=== PATIENT | female | born 1945 | race Caucasian/White ===

== ENCOUNTER 2016-04-15 09:33 | Outpatient (CLI) | payer MEDICARE, OTHER | END 2016-04-15 09:34 | disposition home or self-care (01) | DX: Z12.31 Encounter for screening mammogram for malignant neoplasm of breast (principal); Z80.3 Family history of malignant neoplasm of breast ==

== ENCOUNTER 2016-04-15 09:36 | Outpatient (CLI) | payer MEDICARE, OTHER | END 2016-04-15 09:37 | disposition home or self-care (01) | DX: M50.221 Other cervical disc displacement at C4-C5 level (principal); M43.19 Spondylolisthesis, multiple sites in spine; M48.02 Spinal stenosis, cervical region; M47.892 Other spondylosis, cervical region; M79.602 Pain in left arm ==

== ENCOUNTER 2016-06-16 08:00 | Outpatient (CLI) | payer MEDICARE | END 2016-06-16 08:01 | DX: N76.0 Acute vaginitis (principal) ==

== ENCOUNTER 2016-07-01 07:31 | Outpatient (CLI) | payer MEDICARE | END 2016-07-01 23:59 | DX: N76.1 Subacute and chronic vaginitis (principal) ==

== ENCOUNTER 2016-07-23 07:32 | Outpatient (CLI) | payer MEDICARE | END 2016-07-23 23:59 | DX: N89.8 Other specified noninflammatory disorders of vagina (principal) ==

== ENCOUNTER 2017-05-12 13:11 | Outpatient (CLI) | payer MEDICARE ==
--- NOTE | 2017-05-13 18:04 | Mammography Report ---
DIGITAL SCREENING MAMMOGRAM: 05/12/2017 CLINICAL INDICATION: A 71-year-old with a family history of breast cancer for screening. COMPARISON: 03/2016, 08/2014, 02/2013, 12/2011, 11/2010, 12/2009, 11/2009. TECHNIQUE: Routine CC and MLO projections were obtained of the breasts. FINDINGS: The breasts again demonstrate heterogeneously dense fibroglandular parenchyma bilaterally. There is a possible increase in calcifications in the left upper outer central breast. Further evaluation with spot magnification views is recommended. No mammographically suspicious findings are appreciated in the right breast. IMPRESSION: INCOMPLETE EXAMINATION. RECOMMENDATION: Additional evaluation of the left breast as above. BIRADS category: 0, incomplete. STANDARD QUALIFYING STATEMENTS 1. This examination was reviewed with the aid of Computed-Aided Detection (CAD). 2. A negative or benign imaging report should not delay biopsy if clinically suspicious findings are present. Consider surgical consultation if warranted. More than 5% of cancers are not identified by imaging. 3. Dense breasts may obscure an underlying neoplasm. TD: 05/13/2017 18:03
== END 2017-05-12 13:12 | disposition home or self-care (01) ==
LOC: DI 13:11
PROVIDERS: ATTEND Internal Medicine
DX: Z12.31 Encounter for screening mammogram for malignant neoplasm of breast (principal); R92.8 Other abnormal and inconclusive findings on diagnostic imaging of breast; Z80.3 Family history of malignant neoplasm of breast
CPT/HCPCS: 77067

== ENCOUNTER 2017-05-12 13:12 | Outpatient (CLI) | payer MEDICARE ==
[2017-05-12 12:57] LABS: BASOPHILS % (AUTO) 1.1 %; EOSINOPHILS # (AUTO) 0.1 10^3/uL (0.0-0.7); EOSINOPHILS % (AUTO) 1.6 %; HGB - HEMOGLOBIN 13.6 g/dL (12.0-16.0); LYMPHOCYTES # (AUTO) 1.6 10^3/uL (1.5-3.5); LYMPHOCYTES % (AUTO) 40.8 %; MEAN CORPUSCULAR HEMOGLOBIN 32.3 pg (27.0-31.0); MEAN CORPUSCULAR HGB CONC 34.3 g/dL (32.0-36.0); MEAN CORPUSCULAR VOLUME 94.3 fL (81.0-99.0); MEAN PLATELET VOLUME 6.9 fL (7.9-10.8); MONOCYTES # (AUTO) 0.3 10^3/uL (0.0-1.0); MONOCYTES % (AUTO) 7.6 %; NEUTROPHILS # (AUTO) 1.9 10^3/uL (1.5-6.6); NEUTROPHILS % (AUTO) 48.9 %; PLT - PLATELET COUNT 262 10^3/uL (130-450); RED BLOOD COUNT 4.19 10^6/uL (4.20-5.40); RED CELL DISTRIBUTION WIDTH 12.6 % (12.0-15.0); WHITE BLOOD COUNT 3.9 x10^3/uL (4.8-10.8)
[2017-05-12 13:32] LABS: ALBUMIN 4.1 g/dL (3.2-5.5); ALBUMIN/GLOBULIN RATIO 1.5 (1.0-2.2); ALKALINE PHOSPHATASE 37 IU/L (42-121); ALT ALANINE AMINOTRANSFERASE 34 IU/L (10-60); AST ASPARTATE AMINOTRANSFERASE 26 IU/L (10-42); BILIRUBIN,TOTAL 0.5 mg/dL (0.2-1.0); BUN - BLOOD UREA NITROGEN 14 mg/dL (6-20); CALCIUM 8.7 mg/dL (8.5-10.3); CARBON DIOXIDE - CO2 26 mmol/L (21-32); CHLORIDE 104 mmol/L (101-111); CHOL/HDL RATIO 4.4 (<4.4); CHOLESTEROL 277 mg/dL; CREATININE 0.7 mg/dL (0.4-1.0); GFR - MDRD 82 (>89); GLUCOSE 87 mg/dL (70-100); HB2 TOTAL 14.8 g/dL; HDL CHOLESTEROL 63 mg/dL; HEMOGLOBIN A1C 0.5 g/dL; HEMOGLOBIN A1C % 5.2 % (4.6-6.2); LDL CHOLESTEROL,CALCULATED 199 mg/dL; LDL/HDL RATIO 3.2 (<4.4); SODIUM 138 mmol/L (135-145); TOTAL PROTEIN 6.8 g/dL (6.7-8.2); VLDL CHOLESTEROL 15 mg/dL
--- NOTE | 2017-05-13 15:08 | Ultrasound Report ---
CAROTID DUPLEX: 05/12/2017 CLINICAL INDICATION: Retinal artery occlusion. TECHNIQUE: Real-time sonographic vascular imaging was performed by the colorectal surgeon through the carotid arteries utilizing both color-flow and Doppler spectral analysis. Multiple sales utility representative static images were saved for review. RIGHT Vessel PSV cm/sec EDV cm/sec ICA/CCA RSV Ratio Degree of Stenosis Plaque Estimate % RCCA Prox 87 -- -- RCCA Dist 93 25 -- RECA 73 -- -- RT BULB 83 26 0.89 VIOLA Prox 61 23 0.65 VIOLA Mid 166 42 1.7 VIOLA Dist 130 39 1.4 RVA 52 -- -- RVA flow direction: Antegrade LEFT Vessel PSV cm/sec EDV cm/sec ICA/CCA RSV Ratio Degree of Stenosis Plaque Estimate % LCCA Prox 83 -- -- LCCA Dist 98 30 -- LECA 90 -- -- LFT BULB 118 29 1.2 LICA Prox 75 26 0.76 LICA Mid 78 27 0.79 LICA Dist 117 40 1.19 LVA 60 -- -- LVA flow direction: Antegrade Velocity criteria are extrapolated from diameter data as defined by the Society of Radiologists in Ultrasound Consensus Conference Radiology 2003; 229; 340-346. Degree of Stenosis % ICA PSV cm/sec ICA/CCA RSV Ratio ICA EDV cm/sec Plaque Estimate % Normal < 125 < 40 < 2.0 None <50 < 125 < 40 < 2.0 < 50 50-69 125-130 40-100 2.0-4.0 >/=50 >/=70 but less than near occlusion > 230 > 100 > 4.0 >/=50 Near occlusion High, low or undetectable Variable Variable Visible Total occlusion Undetectable Not applicable Not applicable No detectable lumen FINDINGS RIGHT: There is minimal plaquing in the right carotid bifurcation. The internal carotid artery is tortuous, but there is no evidence of a focal hemodynamically significant stenosis. LEFT: There is mild calcified plaquing in the left carotid bifurcation. The left internal carotid artery is tortuous, but there is no evidence of a focal hemodynamically significant stenosis. The vertebral arteries demonstrate antegrade flow bilaterally. IMPRESSION: NO EVIDENCE OF A HEMODYNAMICALLY SIGNIFICANT CAROTID STENOSIS. TD: 05/12/2017 16:30 [facility]
== END 2017-05-12 13:13 | disposition home or self-care (01) ==
LOC: DI 13:12
PROVIDERS: ATTEND Internal Medicine
DX: H34.9 Unspecified retinal vascular occlusion (principal); I63.9 Cerebral infarction, unspecified; I10 Essential (primary) hypertension; K76.89 Other specified diseases of liver; K76.0 Fatty (change of) liver, not elsewhere classified; M19.90 Unspecified osteoarthritis, unspecified site
CPT/HCPCS: 36415; 80053; 80061; 83036; 83721; 84443; 85025; 93880

== ENCOUNTER 2017-05-13 08:29 | Outpatient (CLI) | payer MEDICARE | END 2017-05-13 08:30 | disposition home or self-care (01) | LOC: DI 08:29 | PROVIDERS: ATTEND Internal Medicine | DX: H34.9 Unspecified retinal vascular occlusion (principal); I51.7 Cardiomegaly | CPT/HCPCS: 93306 ==

== ENCOUNTER 2017-05-25 14:03 | Outpatient (CLI) | payer MEDICARE ==
--- NOTE | 2017-05-25 18:08 | Mammography Report ---
DIGITAL DIAGNOSTIC LEFT MAMMOGRAM: 05/25/2017 CLINICAL INDICATION: Calcifications left upper-outer posterior breast. TECHNIQUE: Left true lateral and spot magnification views. COMPARISON: 05/12/2017, 04/15/2016, 08/27/2014, 03/06/2013, 12/28/2011, 2010, 01/10/2010, 12/24/2009. FINDINGS: The left breast again demonstrates heterogeneously dense fibroglandular parenchyma. The calcifications in question, in the left upper-outer posterior breast, appear punctate on spot magnification views. No associated mass or architectural distortion is identified. IMPRESSION: PROBABLE BENIGN LEFT CALCIFICATIONS. RECOMMENDATION: Diagnostic left mammogram in 6 months. BIRADS category: 3, probable benign findings. STANDARD QUALIFYING STATEMENTS 1. This examination was reviewed with the aid of Computed-Aided Detection (CAD) . 2. A negative or benign imaging report should not delay biopsy if clinically suspicious findings are present. Consider surgical consultation if warranted. More than 5 % of cancers are not identified by imaging. 3. Dense breasts may obscure an underlying neoplasm. TD: 05/25/2017 18:07 ELENI
== END 2017-05-25 14:04 | disposition home or self-care (01) ==
LOC: DI 14:03
PROVIDERS: ATTEND Internal Medicine
DX: R92.1 Mammographic calcification found on diagnostic imaging of breast (principal)

== ENCOUNTER 2017-07-05 15:29 | Outpatient (CLI) | payer MEDICARE | END 2017-07-05 15:30 | disposition critical access hospital (66) | LOC: EMS 15:29 | PROVIDERS: ATTEND Surgery | DX: R55 Syncope and collapse (principal); R11.0 Nausea | CPT/HCPCS: A0425; A0429 ==

== ENCOUNTER 2017-07-05 15:36 | Emergency (ER) | payer MEDICARE ==
[2017-07-05 17:13] LABS: BASOPHILS % (AUTO) 0.6 %; EOSINOPHILS % (AUTO) 0.6 %; HGB - HEMOGLOBIN 14.3 g/dL (12.0-16.0); LYMPHOCYTES # (AUTO) 1.1 10^3/uL (1.5-3.5); LYMPHOCYTES % (AUTO) 17.2 %; MEAN CORPUSCULAR HEMOGLOBIN 31.1 pg (27.0-31.0); MEAN CORPUSCULAR VOLUME 94.3 fL (81.0-99.0); MONOCYTES # (AUTO) 0.5 10^3/uL (0.0-1.0); MONOCYTES % (AUTO) 7.6 %; NEUTROPHILS # (AUTO) 4.7 10^3/uL (1.5-6.6); PLT - PLATELET COUNT 291 10^3/uL (130-450); RED BLOOD COUNT 4.58 10^6/uL (4.20-5.40); RED CELL DISTRIBUTION WIDTH 13.2 % (12.0-15.0); WHITE BLOOD COUNT 6.4 x10^3/uL (4.8-10.8)
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
[2017-07-05 17:25] LABS: ALBUMIN 4.6 g/dL (3.2-5.5); ALBUMIN/GLOBULIN RATIO 1.6 (1.0-2.2); BILIRUBIN,TOTAL 0.6 mg/dL (0.2-1.0); CALCIUM 8.3 mg/dL (8.5-10.3); CREATININE 0.6 mg/dL (0.4-1.0); TOTAL PROTEIN 7.4 g/dL (6.7-8.2)
[2017-07-05 18:12] LABS: BILIRUBIN,URINE NEGATIVE (NEGATIVE); CLARITY,URINE CLEAR (CLEAR); GLUCOSE, URINE (UA) NEGATIVE (NEGATIVE); KETONES,URINE (UA) NEGATIVE (NEGATIVE); LEUKOCYTE ESTERASE, URINE TRACE (NEGATIVE); NITRITE,URINE NEGATIVE (NEGATIVE); OCCULT BLOOD,URINE NEGATIVE (NEGATIVE); PH,URINE 6.5 PH (5.0-7.5); PROTEIN,URINE NEGATIVE (NEGATIVE); UROBILINOGEN,URINE 0.2 (NORMAL) E.U./dL (NORMAL)
[2017-07-05 18:48] LABS: BACTERIA,URINE None Seen /HPF (None Seen); RBC,URINE None Seen /HPF (0-5); SQUAMOUS EPITHELIAL CELL,UR RARE Squamous (<= Few)
[2017-07-05 19:17] VITALS: BP 179/74
== END 2017-07-05 19:16 | disposition home or self-care (01) ==
LOC: EDUNIT# → ED 15:36
DX: R55 Syncope and collapse (principal); E78.00 Pure hypercholesterolemia, unspecified; M19.90 Unspecified osteoarthritis, unspecified site
CPT/HCPCS: 36415; 80053; 81001; 81003; 83690; 85025; 87086; 93005; 99283; 99284

== ENCOUNTER 2018-06-07 08:47 | Outpatient (CLI) | payer MEDICARE ==
[2018-06-07 09:06] LABS: BASOPHILS % (AUTO) 1.2 %; EOSINOPHILS # (AUTO) 0.1 10^3/uL (0.0-0.7); EOSINOPHILS % (AUTO) 1.9 %; HGB - HEMOGLOBIN 13.7 g/dL (12.0-16.0); LYMPHOCYTES # (AUTO) 1.3 10^3/uL (1.5-3.5); LYMPHOCYTES % (AUTO) 39.2 %; MEAN CORPUSCULAR HEMOGLOBIN 32.2 pg (27.0-31.0); MEAN CORPUSCULAR HGB CONC 34.4 g/dL (32.0-36.0); MEAN CORPUSCULAR VOLUME 93.6 fL (81.0-99.0); MEAN PLATELET VOLUME 6.8 fL (7.9-10.8); MONOCYTES # (AUTO) 0.3 10^3/uL (0.0-1.0); MONOCYTES % (AUTO) 8.4 %; NEUTROPHILS # (AUTO) 1.7 10^3/uL (1.5-6.6); NEUTROPHILS % (AUTO) 49.3 %; PLT - PLATELET COUNT 264 10^3/uL (130-450); RED BLOOD COUNT 4.25 10^6/uL (4.20-5.40); RED CELL DISTRIBUTION WIDTH 12.9 % (12.0-15.0); WHITE BLOOD COUNT 3.4 x10^3/uL (4.8-10.8)
[2018-06-07 09:28] LABS: ALBUMIN 4.1 g/dL (3.2-5.5); ALBUMIN/GLOBULIN RATIO 1.5 (1.0-2.2); ALKALINE PHOSPHATASE 42 IU/L (42-121); ALT ALANINE AMINOTRANSFERASE 28 IU/L (10-60); AST ASPARTATE AMINOTRANSFERASE 25 IU/L (10-42); BILIRUBIN,TOTAL 0.9 mg/dL (0.2-1.0); BUN - BLOOD UREA NITROGEN 20 mg/dL (6-20); CALCIUM 8.7 mg/dL (8.5-10.3); CARBON DIOXIDE - CO2 28 mmol/L (21-32); CHLORIDE 103 mmol/L (101-111); CHOL/HDL RATIO 3.7 (<4.4); CHOLESTEROL 258 mg/dL; CREATININE 0.7 mg/dL (0.4-1.0); GFR - MDRD 82 (>89); GLUCOSE 101 mg/dL (70-100); HDL CHOLESTEROL 70 mg/dL; LDL CHOLESTEROL,CALCULATED 171 mg/dL; LDL/HDL RATIO 2.4 (<4.4); SODIUM 138 mmol/L (135-145); TOTAL PROTEIN 6.9 g/dL (6.7-8.2); VLDL CHOLESTEROL 17 mg/dL
[2018-06-07 09:31] LABS: CRP - C-REACTIVE PROTEIN < 1.0 mg/dL (0-1.0)
[2018-06-07 09:34] LABS: BILIRUBIN,URINE NEGATIVE (NEGATIVE); GLUCOSE, URINE (UA) NEGATIVE (NEGATIVE); KETONES,URINE (UA) NEGATIVE (NEGATIVE); LEUKOCYTE ESTERASE, URINE NEGATIVE (NEGATIVE); NITRITE,URINE NEGATIVE (NEGATIVE); OCCULT BLOOD,URINE NEGATIVE (NEGATIVE); PH,URINE 6.5 PH (5.0-7.5); PROTEIN,URINE NEGATIVE (NEGATIVE); UROBILINOGEN,URINE 0.2 (NORMAL) E.U./dL (NORMAL)
[2018-06-07 09:37] LABS: CLARITY,URINE CLEAR (CLEAR)
[2018-06-07 09:54] LABS: THYROID STIMULATING HORMONE 3.08 uIU/mL (0.34-5.60)
== END 2018-06-07 08:48 | disposition home or self-care (01) ==
LOC: LAB 08:47
PROVIDERS: ATTEND Internal Medicine
DX: I10 Essential (primary) hypertension (principal); K76.0 Fatty (change of) liver, not elsewhere classified; N20.0 Calculus of kidney; E78.5 Hyperlipidemia, unspecified; I63.9 Cerebral infarction, unspecified; Z13.6 Encounter for screening for cardiovascular disorders; Z79.899 Other long term (current) drug therapy
CPT/HCPCS: 36415; 80053; 80061; 81001; 81003; 82607; 83721; 84443; 85025; 86140; 87086

== ENCOUNTER 2018-06-07 10:22 | Outpatient (CLI) | payer MEDICARE ==
--- NOTE | 2018-06-07 15:27 | Mammography Report ---
Reason: 6 MO F/U - CAL[facility] Procedure Date: 06/07/2018 Accession Number: [id number] / [id number] Procedure: MARY - Diagnostic Dig Bilat CPT Code: FULL RESULT: EXAM: Diagnostic Dig Bilat DATE: 06/07/2018 11:38 AM CLINICAL HISTORY: Surveillance imaging for calcifications upper outer left breast. No reported personal history of breast cancer. Strong family history with 2 sisters BRCA positive; patient has been tested personally and is not BRCA positive. TECHNIQUE: Bilateral CC and MLO views were obtained. Additional imaging of the left breast including [facility] magnified lateral and CC views, 90 degree lateral. COMPARISON: 05/25/2017 through 03/06/2013 FINDINGS: The breasts demonstrate heterogeneously dense fibroglandular parenchyma bilaterally. Right breast: There are no suspicious masses, calcifications or areas of distortion. Left breast: There is a stable 7 mm grouping of fine punctate calcifications in the 2:00 breast, 8 cm from the nipple. These calcifications are unchanged on conventional views dating back to 2014. There are no suspicious masses or areas of distortion IMPRESSION: Right breast: Negative. BI-RADS Category 1. Recommend annual screening mammography. Left breast: Stable punctate calcifications upper outer left breast since at least 2014. Long-term stability consistent with nonaggressive process, appropriate for follow-up at yearly screening mammography. Benign. BI-RADS Category 2. Recommend annual screening mammography BI-RADS CATEGORY 2: Benign findings STANDARD QUALIFYING STATEMENTS: 1. This examination was not reviewed with the aid of Computer-Aided Detection (CAD). 2. A negative or benign imaging report should not preclude biopsy if clinically suspicious findings are present. 3. Dense breasts may obscure an underlying neoplasm. 4. This examination was reviewed with the aid of 3D breast imaging (tomosynthesis).
== END 2018-06-07 10:23 | disposition home or self-care (01) ==
LOC: DI 10:22
PROVIDERS: ATTEND Internal Medicine
DX: R92.1 Mammographic calcification found on diagnostic imaging of breast (principal); Z13.6 Encounter for screening for cardiovascular disorders; N20.0 Calculus of kidney; E78.5 Hyperlipidemia, unspecified; I63.9 Cerebral infarction, unspecified; I10 Essential (primary) hypertension; Z79.899 Other long term (current) drug therapy; K76.0 Fatty (change of) liver, not elsewhere classified
CPT/HCPCS: 36415; 77066; 80053; 80061; 81001; 81003; 82607; 83721; 84443; 85025; 86140; 87086